=== PATIENT | female | born 1980 | race African-American/Black ===

== ENCOUNTER 2017-03-07 03:36 | Emergency (ER) | payer MEDICAID ==
[~2017-03-07] VITALS: Ht 170.2 cm; Wt 59.0 kg
[2017-03-07 03:54] VITALS: BP 152/82
== END 2017-03-07 04:00 | disposition left against medical advice (07) ==
LOC: EDBD 03:36 → ER 03:44
DX: R11.2 Nausea with vomiting, unspecified (principal); Z53.21 Procedure and treatment not carried out due to patient leaving prior to being seen by health care provider